=== PATIENT | female | born 1975 | race Caucasian/White ===

== ENCOUNTER 2023-04-12 12:20 | Emergency (ER) | payer OTHER, BC, SELFPAY ==
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
[2023-04-12 12:51] VITALS: BP 140/88; PULSE 76; RESP 16; TEMP 36.8; O2SAT 100
== END 2023-04-12 13:11 | disposition home or self-care (01) ==
LOC: EXPTROY 12:43
PROVIDERS: Emergency Provider Nurse Practitioner Family
DX: S50.12XA Contusion of left forearm, initial encounter (principal); S50.812A Abrasion of left forearm, initial encounter; V43.52XA Car driver injured in collision with other type car in traffic accident, initial encounter
CPT/HCPCS: 73090; 99213; G0463